=== PATIENT | male | born 1975 | race Caucasian/White ===

== ENCOUNTER 2016-11-12 02:08 | Inpatient (IN) | payer BC ==
[~2016-11-12] VITALS: Ht 185.4 cm; Wt 118.9 kg
[2016-11-12] VITALS (8 sets, daily range): BP systolic 107–150; BP diastolic 57–95
[~2016-11-12 02:08] MED LIST: ALBUTEROL0.09 MG/A2 INH; BACTRIM DS 8001 TA1 PO; BIAXIN500 MG PO; BP MED PO; CATAFLAM50 MG PO; CATAPRES0.1 MG PO; CLARITIN10 MG PO; HYDROCODONE BIT1 T11 PO; LISINOPRIL HCTZ1 TA1 PO; MEDROL DOSEPAK4 MG PO; NYSTATIN AND TR1 CRE T; SIMVASTATIN PO; SIMVASTATIN40 MG PO
[2016-11-12 02:34] LABS: BASO # 0.1 10*3/uL (0.0-0.1); BASO % 0.8 % (0.0-1.0); EOS # 0.2 10*3/uL (0.0-0.4); EOS % 3.5 % (1.0-4.0); HEMATOCRIT 41.2 % (42.0-52.0); HEMOGLOBIN 14.5 g/dl (14.0-18.0); LYMPH # 3.3 10*3/uL (1.3-4.4); MEAN CELL VOLUME 86.9 fl (80.0-94.0); MEAN CORPUSCULAR HGB 30.6 pg (27.0-31.0); MEAN CORPUSCULAR HGB CONC 35.2 g/dl (33.0-37.0); MEAN PLATELET VOLUME 10.3 fl (9.6-12.3); MONO # 0.5 10*3/uL (0.1-1.0); MONO % 8.2 % (3.0-9.0); NEUT # 2.4 10*3/uL (2.3-7.9); NEUT % 37.3 % (47.0-73.0); PLATELET COUNT AUTOMATED 214 10*3/uL (130-400); RED BLOOD COUNT 4.74 10*6/uL (4.50-5.90); RED CELL DISTRI WIDTH 12.4 % (0-14.5); WHITE BLOOD COUNT 6.5 10*3/uL (4.8-10.8)
[2016-11-12 02:50] LABS: ALBUMIN 3.7 gm/dl (3.1-4.5); ALKALINE PHOSPHATASE 88 U/L (45-117); BILIRUBIN, DIRECT < 0.1 mg/dL (0.0-0.2); BILIRUBIN, TOTAL 0.3 mg/dl (0.2-1.0); BUN 10 mg/dl (7-24); CARBON DIOXIDE 24 mmol/L (21-32); CHLORIDE 104 mmol/L (98-107); EST GLOM FILT AFRICAN AMERICAN > 60 ml/min; GLUCOSE 145 mg/dL (65-99); MAGNESIUM 2.1 mg/dL (1.5-2.1); POTASSIUM 3.6 mmol/L (3.5-5.1); SGOT/AST 106 IU/L (3-35); SGPT/ALT 124 U/L (12-78); SODIUM 142 mmol/L (136-145); TOTAL PROTEIN 7.7 gm/dL (6.4-8.2)
[2016-11-12 02:54] LABS: TROPONIN I < 0.015 ng/ml (<0.045)
[2016-11-12 08:03] LABS: PROTHROMBIN TIME 10.6 SECONDS (9.0-12.4)
[2016-11-12] MEDS ORDERED: PRILOSEC20 M1 PO (08:13)
[2016-11-12 08:14] LABS: CHOLESTEROL 257 mg/dL (<200); FREE T4 0.77 ng/dl (0.76-1.46); HDL CHOLESTEROL 36 mg/dl (40-60); MAGNESIUM 2.3 mg/dL (1.5-2.1); PHOSPHOROUS 3.4 mg/dL (2.5-4.9); TRIGLYCERIDES 536 mg/dl (<150)
[2016-11-12] MEDS ORDERED: CLARITIN10 MG PO (08:14)
[2016-11-12 08:15] LABS: TROPONIN I < 0.015 ng/ml (<0.045)
[2016-11-12 09:50] LABS: VITAMIN D, 25-HYDROXY 18.3 ng/mL (30-100)
[2016-11-12 09:51] LABS: FOLIC ACID 21.62 ng/mL (>5.38)
[2016-11-12] MEDS ORDERED: LOPID600 M1 PO (11:25)
[2016-11-12] MEDS ORDERED: METFORMIN500 MG PO (11:25)
[2016-11-12] MEDS ORDERED: PREDNISONE10 MG PO (11:25)
[2016-11-12] MEDS ORDERED: LEVAQUIN500 M2 PO (11:25)
[2016-11-12] MEDS ORDERED: VENTOLIN H0.09 MG/AC INH (11:29)
== END 2016-11-12 14:20 | disposition home or self-care (01) | DRG 871 ==
LOC: ED 02:08 → EDHOLD 06:52 → 4E 07:51
PROVIDERS: Emergency Medicine; Internal Medicine Hospice and Palliative Medicine
DX: A41.9 Sepsis, unspecified organism (principal); J18.9 Pneumonia, unspecified organism; J45.901 Unspecified asthma with (acute) exacerbation; E83.41 Hypermagnesemia; E11.65 Type 2 diabetes mellitus with hyperglycemia; I10 Essential (primary) hypertension; E78.1 Pure hyperglyceridemia; E78.5 Hyperlipidemia, unspecified; F10.120 Alcohol abuse with intoxication, uncomplicated; R06.00 Dyspnea, unspecified; R74.0 Nonspecific elevation of levels of transaminase and lactic acid dehydrogenase [LDH]; Z83.6 Family history of other diseases of the respiratory system; Z84.89 Family history of other specified conditions; Z79.899 Other long term (current) drug therapy

== ENCOUNTER 2016-12-29 22:37 | Emergency (ER) | payer BC ==
[~2016-12-29] VITALS: Ht 185.4 cm; Wt 117.9 kg
[~2016-12-29 22:37] MED LIST changes: +LEVAQUIN500 M2 PO; +LOPID600 M1 PO; +METFORMIN500 MG PO; +PREDNISONE10 MG PO; +PRILOSEC20 M1 PO; +VENTOLIN H0.09 MG/AC INH
[2016-12-29 23:47] LABS: BILIRUBIN NEGATIVE (NEGATIVE); BLOOD TRACE-INTACT (NEGATIVE); CLARITY CLEAR (CLEAR); COLOR YELLOW (YELLOW); GLUCOSE NEGATIVE (NEGATIVE); KETONE NEGATIVE (NEGATIVE); LEUKO ESTERASE NEGATIVE (NEGATIVE); NITRITE NEGATIVE (NEGATIVE); PH 5.5 (5.0-9.0); PROTEIN TRACE (NEGATIVE); SPECIFIC GRAVITY <= 1.005 (1.005-1.030); UROBILINOGEN 0.2 E.U./dl (0.2-1.0)
[2016-12-29 23:57] LABS: URINE AMPHETAMINES < 1000 (1000ng/ml); URINE BARBITURATES < 200 (200ng/ml); URINE COCAINE > 300 (300ng/ml)
[2016-12-30 00:05] LABS: RBC 0-2 rbc/hpf (0-2); URINE REFLEX COMMENT NO (NO)
[2016-12-30 00:55] LABS: BASO # 0.1 10*3/uL (0.0-0.1); BASO % 0.7 % (0.0-1.0); EOS # 0.2 10*3/uL (0.0-0.4); EOS % 2.2 % (1.0-4.0); HEMATOCRIT 46.5 % (42.0-52.0); HEMOGLOBIN 16.2 g/dl (14.0-18.0); LYMPH # 4.3 10*3/uL (1.3-4.4); LYMPH % 53.1 % (27.0-41.0); MEAN CELL VOLUME 88.7 fl (80.0-94.0); MEAN CORPUSCULAR HGB 30.9 pg (27.0-31.0); MEAN CORPUSCULAR HGB CONC 34.8 g/dl (33.0-37.0); MEAN PLATELET VOLUME 10.2 fl (9.6-12.3); MONO # 0.6 10*3/uL (0.1-1.0); MONO % 7.7 % (3.0-9.0); NEUT # 2.9 10*3/uL (2.3-7.9); NEUT % 36.1 % (47.0-73.0); PLATELET COUNT AUTOMATED 217 10*3/uL (130-400); RED BLOOD COUNT 5.24 10*6/uL (4.50-5.90); RED CELL DISTRI WIDTH 12.9 % (0-14.5); WHITE BLOOD COUNT 8.1 10*3/uL (4.8-10.8)
[2016-12-30 01:09] LABS: ALBUMIN 3.9 gm/dl (3.1-4.5); ALKALINE PHOSPHATASE 95 U/L (45-117); BILIRUBIN, TOTAL 0.2 mg/dl (0.2-1.0); BUN 8 mg/dl (7-24); CARBON DIOXIDE 28 mmol/L (21-32); CHLORIDE 106 mmol/L (98-107); EST GLOM FILT AFRICAN AMERICAN > 60 ml/min; GLUCOSE 161 mg/dL (65-99); POTASSIUM 3.9 mmol/L (3.5-5.1); SGOT/AST 45 IU/L (3-35); SGPT/ALT 77 U/L (12-78); SODIUM 141 mmol/L (136-145); TOTAL PROTEIN 7.6 gm/dL (6.4-8.2)
== END 2016-12-30 09:48 | disposition home or self-care (01) ==
LOC: ED 22:37
PROVIDERS: Emergency Medicine
DX: F10.10 Alcohol abuse, uncomplicated (principal); J45.909 Unspecified asthma, uncomplicated; I10 Essential (primary) hypertension; E11.9 Type 2 diabetes mellitus without complications; E78.5 Hyperlipidemia, unspecified; F17.200 Nicotine dependence, unspecified, uncomplicated

== ENCOUNTER 2018-01-27 21:23 | Emergency (ER) | payer BC ==
[~2018-01-27] VITALS: Wt 99.8 kg
[2018-01-27] MEDS ORDERED: LISINOPRIL20 MG PO (21:34)
[2018-01-27] MEDS ORDERED: AMLODIPINE BESY10 MG PO (21:35)
[2018-01-27] MEDS ORDERED: HYDROCHLOROTHIA50 M1 PO (21:36)
== END 2018-01-28 00:15 | disposition home or self-care (01) ==
LOC: ED 21:23
DX: S56.912A Strain of unspecified muscles, fascia and tendons at forearm level, left arm, initial encounter (principal); F17.200 Nicotine dependence, unspecified, uncomplicated; Z79.899 Other long term (current) drug therapy; X50.1XXA Overexertion from prolonged static or awkward postures, initial encounter; Y93.89 Activity, other specified; Y92.099 Unspecified place in other non-institutional residence as the place of occurrence of the external cause; Y99.9 Unspecified external cause status

== ENCOUNTER 2018-04-24 03:37 | Inpatient (IN) | payer BC ==
[~2018-04-24] VITALS: Ht 187.9 cm; Wt 103.0 kg
--- NOTE | ~2018-04-24 | EKG ---
[place], [place] ELECTROCARDIOGRAM REPORT NAME: BERNIE ANDREWS JR UNIT #: [id number] ROOM: [place] [address] DOCTOR: EPIPHANY DRAFT REPORT BIRTHDATE: [birth year] [facility] Test Date: 2018-04-24 Test Time: 07:00:24 Pat Name: BERNIE ANDREWS Department: Room: [place] [address] Gender: M Help Desk Intern: Yeimi Looney : 1975 Requested By: YUE LARSON Order Number: [id number] Reading MD: Juan Ramon Cruz MD Measurements Intervals [place] Rate: 77 P: 6 TN: 127 QRS: 80 QRSD: 112 T: 34 QT: 391 QTc: 443 Interpretive Statements Sinus rhythm Borderline intraventricular conduction delay ST elev, probable normal early repol pattern Electronically Signed On 04-24-2018 16:22:01 PDT by Juan Ramon Cruz MD CM:EKGRPT:ELECTROCARDIOGRAM REPORT [id number] YUE LARSON MD EPIPHANY DRAFT REPORT YUE LARSON MD
[2018-04-24 03:37] VITALS: BP 146/107
[~2018-04-24 03:37] MED LIST changes: +AMLODIPINE BESY10 MG PO; +HYDROCHLOROTHIA50 M1 PO; +LISINOPRIL20 MG PO
[2018-04-24 04:31] LABS: BASO # 0.1 10*3/uL (0.0-0.1); EOS # 0.2 10*3/uL (0.0-0.4); EOS % 3.2 % (1.0-4.0); HEMATOCRIT 46.3 % (42.0-52.0); HEMOGLOBIN 16.1 g/dl (14.0-18.0); LYMPH # 3.4 10*3/uL (1.3-4.4); LYMPH % 47.1 % (27.0-41.0); MEAN CELL VOLUME 90.8 fl (80.0-94.0); MEAN CORPUSCULAR HGB 31.6 pg (27.0-31.0); MEAN CORPUSCULAR HGB CONC 34.8 g/dl (33.0-37.0); MEAN PLATELET VOLUME 9.6 fl (9.6-12.3); MONO # 0.5 10*3/uL (0.1-1.0); MONO % 7.6 % (3.0-9.0); NEUT # 2.9 10*3/uL (2.3-7.9); PLATELET COUNT AUTOMATED 206 10*3/uL (130-400); RED CELL DISTRI WIDTH 13.4 % (0-14.5); WHITE BLOOD COUNT 7.1 10*3/uL (4.8-10.8)
[2018-04-24 04:47] LABS: ALBUMIN 3.8 gm/dl (3.1-4.5); ALKALINE PHOSPHATASE 70 U/L (45-117); BUN 6 mg/dl (7-24); CHLORIDE 103 mmol/L (98-107); CREATININE 0.62 mg/dL (0.70-1.30); LIPASE 185 U/L (73-393); POTASSIUM 3.4 mmol/L (3.5-5.1); SGOT/AST 42 IU/L (3-35); SGPT/ALT 60 U/L (12-78); SODIUM 139 mmol/L (136-145); TOTAL PROTEIN 7.8 gm/dL (6.4-8.2)
[2018-04-24 04:48] LABS: TROPONIN I < 0.015 ng/ml (<0.045)
[2018-04-24 05:08] LABS: URINE AMPHETAMINES < 1000 (1000ng/ml); URINE BARBITURATES < 200 (200ng/ml); URINE BENZODIAZEPINES < 200 (200ng/ml); URINE CANNABINOIDS (THC) < 50 (50ng/ml); URINE COCAINE < 300 (300ng/ml); URINE METHADONE < 300 (300ng/ml); URINE OPIATES < 300 (300ng/ml)
[2018-04-24 05:09] LABS: URINE PHENCYCLIDINE < 25 (25ng/ml)
[2018-04-24 06:36] VITALS: BP 132/72
[2018-04-24 06:42] VITALS: BP 101/60
[2018-04-24 07:36] VITALS: BP 120/90
[2018-04-24 07:50] VITALS: BP 126/88
[2018-04-24] MEDS ORDERED: PRILOSEC20 M1 PO (09:08)
[2018-04-24] MEDS ORDERED: GLUCOPHAGE1000 MG PO (09:08)
[2018-04-24] MEDS ORDERED: ZOCOR20 MG PO (09:08)
[2018-04-24] MEDS ORDERED: PROVENTIL HFA6.7 GM INH (09:11)
[2018-04-24 09:45] LABS: CHOLESTEROL 289 mg/dL (<200); FREE T4 0.78 ng/dl (0.76-1.46); HDL CHOLESTEROL 55 mg/dl (40-60); PHOSPHOROUS 3.8 mg/dL (2.5-4.9); TRIGLYCERIDES 417 mg/dl (<150)
[2018-04-24 09:55] LABS: TROPONIN I < 0.015 ng/ml (<0.045)
[2018-04-24 11:39] LABS: VITAMIN D, 25-HYDROXY 28.3 ng/mL (30-100)
[2018-04-24 12:00] VITALS: BP 126/78
== END 2018-04-24 13:49 | disposition left against medical advice (07) | DRG 641 ==
LOC: ED 03:37 → EDHOLD 06:27 → ICCU 06:27
PROVIDERS: Emergency Medicine Emergency Medical Services; Internal Medicine Nephrology
DX: E87.6 Hypokalemia (principal); E11.65 Type 2 diabetes mellitus with hyperglycemia; J45.909 Unspecified asthma, uncomplicated; I10 Essential (primary) hypertension; E78.5 Hyperlipidemia, unspecified; W18.39XA Other fall on same level, initial encounter; E83.41 Hypermagnesemia; E66.3 Overweight; F10.120 Alcohol abuse with intoxication, uncomplicated; Z79.899 Other long term (current) drug therapy; Z87.01 Personal history of pneumonia (recurrent); Z83.6 Family history of other diseases of the respiratory system; Z84.89 Family history of other specified conditions; Y93.89 Activity, other specified; Y92.89 Other specified places as the place of occurrence of the external cause; Y99.8 Other external cause status; Z72.0 Tobacco use; Z78.9 Other specified health status; Z68.29 Body mass index [BMI] 29.0-29.9, adult

== ENCOUNTER 2018-05-11 00:21 | Emergency (ER) | payer BC ==
[~2018-05-11] VITALS: Ht 185.4 cm; Wt 108.9 kg
[~2018-05-11 00:21] MED LIST changes: +GLUCOPHAGE1000 MG PO; +PROVENTIL HFA6.7 GM INH; +ZOCOR20 MG PO
[2018-05-11 01:45] LABS: BILIRUBIN NEGATIVE (NEGATIVE); BLOOD 1+ (NEGATIVE); CLARITY CLEAR (CLEAR); COLOR YELLOW (YELLOW); GLUCOSE NEGATIVE (NEGATIVE); KETONE NEGATIVE (NEGATIVE); LEUKO ESTERASE NEGATIVE (NEGATIVE); NITRITE NEGATIVE (NEGATIVE); SPECIFIC GRAVITY <= 1.005 (1.005-1.030); UROBILINOGEN 0.2 E.U./dl (0.2-1.0)
[2018-05-11 01:54] LABS: URINE AMPHETAMINES < 1000 (1000ng/ml); URINE BARBITURATES < 200 (200ng/ml); URINE BENZODIAZEPINES < 200 (200ng/ml); URINE CANNABINOIDS (THC) < 50 (50ng/ml); URINE COCAINE < 300 (300ng/ml); URINE METHADONE < 300 (300ng/ml); URINE OPIATES < 300 (300ng/ml)
[2018-05-11 01:55] LABS: RBC 0-2 rbc/hpf (0-2)
[2018-05-11 01:56] LABS: URINE PHENCYCLIDINE < 25 (25ng/ml)
== END 2018-05-11 10:00 | disposition home or self-care (01) ==
LOC: ED 00:21
PROVIDERS: Student in an Organized Health Care Education/Training Program
DX: S01.81XA Laceration without foreign body of other part of head, initial encounter (principal); J45.909 Unspecified asthma, uncomplicated; I10 Essential (primary) hypertension; E11.65 Type 2 diabetes mellitus with hyperglycemia; E78.5 Hyperlipidemia, unspecified; E83.41 Hypermagnesemia; F10.929 Alcohol use, unspecified with intoxication, unspecified; Z79.84 Long term (current) use of oral hypoglycemic drugs; Z79.899 Other long term (current) drug therapy; Z68.25 Body mass index [BMI] 25.0-25.9, adult; Y08.89XA Assault by other specified means, initial encounter; Y93.89 Activity, other specified; Y92.89 Other specified places as the place of occurrence of the external cause; Y99.8 Other external cause status

== ENCOUNTER 2018-06-02 03:25 | Emergency (ER) | payer BC ==
[~2018-06-02] VITALS: Ht 30.5 cm
[2018-06-02] MEDS ORDERED: IBU800 MG PO (03:36)
== END 2018-06-02 03:54 | disposition home or self-care (01) ==
LOC: ED 03:25
DX: S01.81XD Laceration without foreign body of other part of head, subsequent encounter (principal); F17.200 Nicotine dependence, unspecified, uncomplicated; F10.10 Alcohol abuse, uncomplicated; J45.909 Unspecified asthma, uncomplicated; I10 Essential (primary) hypertension; E78.5 Hyperlipidemia, unspecified; E11.65 Type 2 diabetes mellitus with hyperglycemia; Z68.25 Body mass index [BMI] 25.0-25.9, adult; Z79.899 Other long term (current) drug therapy; X58.XXXD Exposure to other specified factors, subsequent encounter

== ENCOUNTER 2018-08-17 | Inpatient (IN) | payer BC ==
[~2018-08-17] MED LIST changes: +IBU800 MG PO
--- NOTE | ~2018-08-17 | EKG ---
[place], [place] ELECTROCARDIOGRAM REPORT NAME: BERNIE ANDREWS JR UNIT #: [id number] ROOM: 405 DOCTOR: MONE DRAFT REPORT BIRTHDATE: [birth year] [facility] Test Date: 2018-08-18 Test Time: 00:32:14 Pat Name: BERNIE ANDREWS Department: Room: 405 Gender: M Etcher Electrolytic: : 1975 Requested By: CANDICE LAZCANO Order Number: [id number] Reading MD: Mira Robles MD Measurements Intervals [place] Rate: 88 P: 76 [place]: 139 QRS: 92 QRSD: 98 T: 11 QT: 353 QTc: 427 Interpretive Statements Sinus rhythm Borderline right axis deviation Compared to ECG 04/24/2018 07:00:24 Electronically Signed On 08-20-2018 12:05:30 PST by Mira Robles MD CM:EKGRPT:ELECTROCARDIOGRAM REPORT [id number] 1205 CANDICE SHORE DRAFT REPORT CANDICE LAZCANO M.D.
--- NOTE | ~2018-08-17 | EKG ---
[place], [place] ELECTROCARDIOGRAM REPORT NAME: BERNIE ANDREWS JR UNIT #: [id number] ROOM: 405 DOCTOR: MONE DRAFT REPORT BIRTHDATE: [birth year] [facility] Test Date: 2018-08-17 Test Time: 18:37:14 Pat Name: BERNIE ANDREWS Department: Room: 405 Gender: M Capacity Planner: REJI : 1975 Requested By: CANDICE LAZCANO Order Number: [id number] Reading MD: Mira Robles MD Measurements Intervals [place] Rate: 87 P: 16 MD: 143 QRS: 81 QRSD: 104 T: 37 QT: 372 QTc: 448 Interpretive Statements Sinus rhythm Compared to ECG 04/24/2018 07:00:24 Electronically Signed On 08-20-2018 12:05:18 PST by Mira Robles MD CM:EKGRPT:ELECTROCARDIOGRAM REPORT [id number] 1205 CANDICE SHORE DRAFT REPORT CANDICE LAZCANO M.D.
--- NOTE | ~2018-08-17 | CON ---
[place], [place] REPORT OF CONSULTATION NAME: BERNIE ANDREWS JR UNIT #: [id number] ROOM: 405 DOCTOR: ALIREZA ATKINSONNASH BIRTHDATE: [birth year] DOS: 08/18/2018 CARDIOLOGY CONSULTATION REASON FOR VISIT: Chest pain. HISTORY OF PRESENT ILLNESS: The patient is a 42-year-old gentleman with history of diabetes, tobacco abuse and alcohol abuse, presented to the Emergency Room for chest pain and anxiety. He complained of intermittent chest pains in the mid substernal area at rest, occasional radiation to left arm and lasts for only few seconds. No associated symptoms such as nausea, diaphoresis or dizziness. The pain relieves by itself. This is a recurrent pain, but earlier in the morning, the pain lasted about an hour, which exacerbated with some diaphoresis and shortness of breath. He denies any palpitation or dizziness, no syncope, no orthopnea, no fever and chills. No nausea, vomiting or diarrhea. No bladder or bowel symptoms, no headache, no musculoskeletal symptoms, no neurologic symptoms. REVIEW OF SYSTEMS: Review of the 10 systems negative except as mentioned above. PAST MEDICAL HISTORY: 1. Hypertension. 2. Diabetes. 3. Dyslipidemia. 4. Overweight. 5. Asthma. PAST SURGICAL HISTORY: No previous cardiac surgical history. SOCIAL HISTORY: The patient does smoke, also drinks alcohol and occasionally uses cocaine. FAMILY HISTORY: Father has COPD. Mother has aneurysm. ALLERGIES: No known drug allergies. HOME MEDICATIONS: Reviewed. The pertinent cardiac medications include lisinopril 20 mg, Norvasc 10 mg and Zocor 20 mg. PHYSICAL EXAMINATION: VITAL SIGNS: Blood pressure 150/90, pulse 79, respiratory rate 20. Weight 99.8 kilos, BMI 29.1. GENERAL: Alert and comfortable, in no acute distress. HEAD AND NECK: Pupils are round and equal. Tongue was moist and pharynx was clear. NECK: Supple, no distended neck veins, no carotid bruit. CHEST: The patient with mild tenderness in the upper chest area. ABDOMEN: Benign, nontender. Bowel sounds normal. EXTREMITIES: Showed no edema. Distal pulses palpable. SKIN: Warm and dry. No cyanosis, no clubbing. [place], [place] REPORT OF CONSULTATION NAME: BERNIE ANDREWS JR UNIT #: [id number] ROOM: 405 DOCTOR: ALIREZA ATKINSON,NASH BIRTHDATE: [birth year] RECTAL: Deferred. GENITOURINARY: Deferred. NEUROLOGIC: The patient is alert and oriented. No focal neurologic deficit. MUSCULOSKELETAL: No joint tenderness or swelling. REVIEW OF THE DIAGNOSTIC TESTS: EKG rhythm strips and labs reviewed. EKG showed sinus rhythm with nondiagnostic anterior ST-T changes. His labs and imaging studies reviewed. IMPRESSION: 1. Chest pain, atypical, myocardial infarction ruled out. 2. Alcohol abuse. 3. Hypertension. 4. Diabetes type 2. 5. Anxiety. 6. Asthma. 7. Dyslipidemia. 8. Overweight. RECOMMENDATIONS: 1. Exercise treadmill stress test due to coronary artery disease risk factors. 2. Monitor his blood pressures and adjust the medications as needed. 3. Risk factor modification to quit smoking and drinking and using drugs was discussed. 4. There is no family at bedside at the time of my examination. 5. Further recommendation based on his symptoms and his stress test. NASH LAY MD CM:CONSTR:REPORT OF CONSULTATION 2253 08/19/18 1112 interface
--- NOTE | ~2018-08-17 | PR ---
[place], [place] PROGRESS NOTE NAME: BERNIE ANDREWS JR [facility] #: [id number] UNIT #: [id number] ROOM: 405 DOCTOR: JD MORILLO MD BIRTHDATE: [birth year] DOS: 08/19/2018 CARDIOLOGY PROGRESS NOTE SUBJECTIVE: The patient was seen today, 08/19/2018, for followup of chest discomfort. He presented to the hospital on 08/17/2018 with intermittent chest pains in the mid substernal area at rest with occasional radiation to his left arm. On the day of admission, the pain lasted about an hour and was associated with diaphoresis and some dyspnea. He therefore came to the hospital. Since he has been here, his symptoms have subsided and he believes they may be related to gas. However, since he does have risk factors of diabetes, hyperlipidemia and cigarette abuse, it was felt that further evaluation with stress testing was appropriate. Since he was hospitalized, his troponin levels have been unremarkable. His blood alcohol level on admission was 264. PHYSICAL EXAMINATION: VITAL SIGNS: Today his pulse is 75 and regular, blood pressure is 120/80. He was afebrile. He weighed 99.9 kg and had a body mass index 29.1. HEENT: Normocephalic and atraumatic. Extraocular muscles are intact. Sclerae are clear. Pupils equal, round and react to light. The oral mucosa is moist. Tongue is midline. NECK: Supple. He has no jugular distention. Carotids are full. He has no bruits. He has no neck or supraclavicular masses and no thyromegaly. LUNGS: Respirations were unlabored. He did have bibasilar wheezes, but no rales. He had no presacral edema or chest wall tenderness. HEART: Had a regular rhythm with a soft S4 gallop, but no S3. ABDOMEN: Soft and normally active. EXTREMITIES: Showed no edema. DIAGNOSTIC DATA: Resting electrocardiogram today is normal. IMPRESSION: 1. Atypical chest discomfort. 2. Diabetes mellitus. 3. Cigarette abuse. PLAN: We will proceed with his exercise stress test today. If that looks good, then no further cardiac workup would be indicated at this time and continued risk factor modification would be all that is indicated. We will make further recommendations after the stress test and I thank the hospitalist service for asking our advice regarding his care. [place], [place] PROGRESS NOTE NAME: JULIANA CROFTBERNIE Diana UNIT #: [id number] ROOM: 405 DOCTOR: JD MORILLO MD BIRTHDATE: [birth year] JD MORILLO MD CM:PNTRANS 1144 JD MORILLO MD 08/19/18 1727 interface
--- NOTE | ~2018-08-17 | EKG ---
[place], [place] ELECTROCARDIOGRAM REPORT NAME: BERNIE ANDREWS JR UNIT #: [id number] ROOM: 405 DOCTOR: MONE DRAFT REPORT BIRTHDATE: [birth year] [facility] Test Date: 2018-08-17 Test Time: 22:05:54 Pat Name: BERNIE ANDREWS Department: Room: 405 Gender: M Pavilion Cutter: : 1975 Requested By: CANDICE LAZCANO Order Number: [id number] Reading MD: Mira Robles MD Measurements Intervals [place] Rate: 79 P: 19 DE: 142 QRS: 72 QRSD: 109 T: 32 QT: 390 QTc: 448 Interpretive Statements Sinus rhythm ST elev, probable normal early repol pattern Baseline wander in lead(s) V3,V4,V5,V6 Compared to ECG 04/24/2018 07:00:24 No significant changes Electronically Signed On 08-20-2018 12:05:23 PST by Mira Robles MD CM:EKGRPT:ELECTROCARDIOGRAM REPORT 1205 CANDICE SHORE DRAFT REPORT CANDICE LAZCANO M.D.
[2018-08-17 18:42] VITALS: BP 163/100
[2018-08-17 18:52] LABS: BASO # 0.1 10*3/uL (0.0-0.1); BASO % 0.5 % (0.0-1.0); EOS % 0.1 % (1.0-4.0); HEMATOCRIT 45.8 % (42.0-52.0); HEMOGLOBIN 15.7 g/dl (14.0-18.0); LYMPH # 1.4 10*3/uL (1.3-4.4); LYMPH % 14.3 % (27.0-41.0); MEAN CELL VOLUME 90.7 fl (80.0-94.0); MEAN CORPUSCULAR HGB 31.1 pg (27.0-31.0); MEAN CORPUSCULAR HGB CONC 34.3 g/dl (33.0-37.0); MEAN PLATELET VOLUME 9.6 fl (9.6-12.3); MONO # 0.7 10*3/uL (0.1-1.0); MONO % 7.4 % (3.0-9.0); NEUT # 7.7 10*3/uL (2.3-7.9); NEUT % 77.4 % (47.0-73.0); PLATELET COUNT AUTOMATED 215 10*3/uL (130-400); RED BLOOD COUNT 5.05 10*6/uL (4.50-5.90); RED CELL DISTRI WIDTH 12.7 % (0-14.5); WHITE BLOOD COUNT 9.9 10*3/uL (4.8-10.8)
[2018-08-17 19:02] LABS: INTERNATIONAL NORM RATIO 0.9 (2.0-3.5)
[2018-08-17 19:06] LABS: BILIRUBIN NEGATIVE (NEGATIVE); BLOOD NEGATIVE (NEGATIVE); CLARITY CLEAR (CLEAR); COLOR YELLOW (YELLOW); GLUCOSE 2+ (NEGATIVE); KETONE NEGATIVE (NEGATIVE); LEUKO ESTERASE NEGATIVE (NEGATIVE); NITRITE NEGATIVE (NEGATIVE); SPECIFIC GRAVITY <= 1.005 (1.005-1.030); UROBILINOGEN 0.2 E.U./dl (0.2-1.0)
[2018-08-17 19:10] LABS: ALKALINE PHOSPHATASE 75 U/L (45-117); BUN 7 mg/dl (7-24); CHLORIDE 98 mmol/L (98-107); CREATININE 0.81 mg/dL (0.70-1.30); POTASSIUM 3.5 mmol/L (3.5-5.1); SGOT/AST 84 IU/L (3-35); SGPT/ALT 98 U/L (12-78); SODIUM 136 mmol/L (136-145); TOTAL PROTEIN 7.8 gm/dL (6.4-8.2)
[2018-08-17 19:13] LABS: TROPONIN I < 0.015 ng/ml (<0.045)
[2018-08-17 19:14] LABS: URINE AMPHETAMINES < 1000 (1000ng/ml); URINE BARBITURATES < 200 (200ng/ml); URINE BENZODIAZEPINES < 200 (200ng/ml); URINE CANNABINOIDS (THC) < 50 (50ng/ml); URINE COCAINE < 300 (300ng/ml); URINE METHADONE < 300 (300ng/ml); URINE OPIATES < 300 (300ng/ml); URINE PHENCYCLIDINE < 25 (25ng/ml)
[2018-08-17 19:17] LABS: BACTERIA TRACE; EPITHELIAL CELLS 0-2; RBC 0-2 rbc/hpf (0-2); WBC 0-2 wbc/hpf (0-5)
[2018-08-17 19:54] VITALS: BP 150/95
--- NOTE | 2018-08-17 19:56 | NUR ---
PATIENT IN BED AWAKE, FAMILY AT BEDSIDE. AOX3. NO DISTRESS NOTED. RESP EASY AND NONLABORED. RN WILL CONT TO MONITOR.
[2018-08-17 20:06] VITALS: BP 137/91
[2018-08-17 20:23] VITALS: BP 146/86
--- NOTE | 2018-08-17 20:44 | NUR ---
CRITICAL LAB, [place] 3.2
--- NOTE | 2018-08-17 20:49 | NUR ---
PATIENT IN BED AWAKE, AOX3. CALM AND COOPERATIVE. RESP EASY AND NONLABORED. RN WILL CONT TO MONITOR
[2018-08-17 21:44] VITALS: BP 144/74
[2018-08-17 22:00] VITALS: BP 147/100
--- NOTE | 2018-08-17 22:00 | NUR ---
A 42, admitted to ICCU, under the services of ROSEMARY North DO with a diagnosis of CHEST PAIN, ETOH INTOX. Chief complaint is CHEST PAIN. Patient arrived via bed from ER. Monitor applied. Initial assessment completed. Vital signs taken and recorded. ROSEMARY NROTH DO notified of admission to the unit. Orders received. See assessment for past medical history, medications and allergies. Patient and/or family oriented to unit. [facility] visitation policy reviewed. Clothing/patient valuable form completed. LAUREN BOOGIE
--- NOTE | 2018-08-18 | NUR ---
PATIENT DENIES ANY CHEST PAIN AT THIS TIME, STATED THAT IT WAS MORE ANXIETY. HE IS HAVING SOME PROBLEMS WITH A RELATIONSHIP, AND IT HAS BEEN GOING ON FOR A COUPLE OF MONTHS. THAT IS ALSO WHEN HE STARTED DRINKING HEAVILY EVERYDAY. PATIENT DENIES ANY SYMPTOMS OF WITHDRAWL AT THIS TIME, DID STATE HE HAS HAD THEM BEFORE. PATIENT APPROPRIATE AT THIS TIME. WILL CONTINUE TO MONITOR.
[2018-08-18 04:00] VITALS: BP 125/86
[2018-08-18 05:59] LABS: BASO # 0.1 10*3/uL (0.0-0.1); BASO % 1.2 % (0.0-1.0); EOS # 0.2 10*3/uL (0.0-0.4); EOS % 3.3 % (1.0-4.0); HEMATOCRIT 43.7 % (42.0-52.0); HEMOGLOBIN 14.9 g/dl (14.0-18.0); LYMPH # 1.8 10*3/uL (1.3-4.4); MEAN CELL VOLUME 91.8 fl (80.0-94.0); MEAN CORPUSCULAR HGB 31.3 pg (27.0-31.0); MEAN CORPUSCULAR HGB CONC 34.1 g/dl (33.0-37.0); MEAN PLATELET VOLUME 10.1 fl (9.6-12.3); MONO # 0.6 10*3/uL (0.1-1.0); MONO % 12.1 % (3.0-9.0); NEUT # 2.5 10*3/uL (2.3-7.9); NEUT % 48.2 % (47.0-73.0); PLATELET COUNT AUTOMATED 184 10*3/uL (130-400); RED BLOOD COUNT 4.76 10*6/uL (4.50-5.90); RED CELL DISTRI WIDTH 12.7 % (0-14.5); WHITE BLOOD COUNT 5.2 10*3/uL (4.8-10.8)
[2018-08-18 06:10] LABS: ALBUMIN 3.1 gm/dl (3.1-4.5); ALKALINE PHOSPHATASE 66 U/L (45-117); BUN 5 mg/dl (7-24); CHLORIDE 106 mmol/L (98-107); CREATININE 0.63 mg/dL (0.70-1.30); PHOSPHOROUS 3.2 mg/dL (2.5-4.9); POTASSIUM 3.2 mmol/L (3.5-5.1); SGOT/AST 64 IU/L (3-35); SGPT/ALT 86 U/L (12-78); SODIUM 141 mmol/L (136-145); TOTAL PROTEIN 6.7 gm/dL (6.4-8.2)
[2018-08-18 08:00] VITALS: BP 147/99
--- NOTE | 2018-08-18 10:45 | NUR ---
REPORT RECEIVED FROM CASE MANAGEMENT MANAGER KEREN. PATIENT RESTING COMFORTABLY IN BED. PATIENT A&Ox3. PATIENT DENIES CP, SOB, N/D/V/C. PATIENT HAS NO COMPLAINTS OR NEEDS AT THIS TIME. WILL MONITOR.
--- NOTE | 2018-08-18 10:52 | NUR ---
PT TRANSFERED TO [facility] AT THIS TIME VIA WHEELCHAIR. REPORT GIVEN TO BLAIR CHEEK.
[2018-08-18 12:00] VITALS: BP 151/90; BP 154/97
[2018-08-18 16:00] VITALS: BP 138/84
--- NOTE | 2018-08-18 16:16 | NUR ---
PATIENT REQUESTING MEDICATION FOR HEARTBURN. PATIENT TAKES PRILOSEC AT HOME, ON HOME MED REQ BUT WAS HELD ON ADMISSION. DR ROBBINS CALLED AND MADE AWARE- AWAITING FOR NEW ORDERS.
--- NOTE | 2018-08-18 18:30 | NUR ---
Shift chart check completed.
[2018-08-18 20:00] VITALS: BP 139/96; BP 148/88
--- NOTE | 2018-08-18 20:25 | NUR ---
AWAKE/ALERT FOR SHIFT ASSESSMENT. RESPIRATIONS EASY/REG ON RA. NO VOICED COMPLAINTS FROM PATIENT AT THIS TIME. BED IN LOW POSITION, WHEELS LOCKED, CALL LIGHT IN REACH.
[2018-08-19] VITALS: BP 143/88
--- NOTE | 2018-08-19 03:02 | NUR ---
SLEEPING. NO S/S OF DISTRESS NOTED. CALL LIGHT IN REACH
[2018-08-19 08:00] VITALS: BP 120/80
--- NOTE | 2018-08-19 09:00 | NUR ---
Asbestos Pipe Supervisor in to talk to patient. Patient states lives at home with family. There are few steps in the home. Physician: jeanne sullivan Pharmacy[facility] health services: none Patient's level of ADLs: INDEPENDENT Patient has working utilities: all working DME: none Follow-up physician's appointment after d/c: will be made by hospitalist nurse director upon discharged Does patient want to access PORTAL?: no Discharge plan discussed with patient, patient lives at home, is independent in adls and ambulation, works, drives, patient states he will be going back home when able and denies any home needs. RERE CORTES
--- NOTE | 2018-08-19 11:52 | NUR ---
INFORMED SIGNED CONSENT OBTAINED FOR LEXISCAN STRESS TEST WITH DR MORILLO. RESTING EKG NSR HR 71 BP 140/92 IN SUPINE POSITION, STANDING HR 86 BP 132/90. PT COMPLETED 10:15 OF A AJIT PROTOCOL WITH PT COMPLETING 1:15 OF STAGE IV AT 4.2 MPH AND 16% GRADE. PT REACHED A PEAK HR OF 184 WHICH REPRESENTS 100% OF PREDICTED MAXIMUM AND A PEAK BP OF 174/90. NO ARRHYTHMIAS OR ST CHAGNES NOTED. LAST RECOVERY HR OF 129 BP 167/78. PT IN STABLE CONDITION, AWAITING NUCLEAR IMAGES.
[2018-08-19 16:00] VITALS: BP 126/75
--- NOTE | 2018-08-19 19:30 | NUR ---
ASSUMED CARE OF PT AT THIS TIME. PT IS AWAKE IN BED, A&OX3. DENIES ANY PAIN/GENERALIZED DISCOMFORT. WILL MONITOR. CALL LIGHT LEFT IN REACH.
[2018-08-19 20:00] VITALS: BP 128/80
--- NOTE | 2018-08-19 23:56 | NUR ---
SCHEDULED PO LIBRIUM ADMINISTERED PER ORDER. WILL MONITOR. CALL LIGHT LEFT IN REACH.
[2018-08-20] VITALS: BP 129/91
[2018-08-20 06:27] LABS: BASO # 0.1 10*3/uL (0.0-0.1); BASO % 0.9 % (0.0-1.0); EOS # 0.2 10*3/uL (0.0-0.4); EOS % 2.4 % (1.0-4.0); HEMATOCRIT 47.6 % (42.0-52.0); HEMOGLOBIN 15.8 g/dl (14.0-18.0); LYMPH # 2.3 10*3/uL (1.3-4.4); MEAN CELL VOLUME 92.6 fl (80.0-94.0); MEAN CORPUSCULAR HGB 30.7 pg (27.0-31.0); MEAN CORPUSCULAR HGB CONC 33.2 g/dl (33.0-37.0); MEAN PLATELET VOLUME 10.4 fl (9.6-12.3); MONO # 0.5 10*3/uL (0.1-1.0); MONO % 7.1 % (3.0-9.0); NEUT % 56.5 % (47.0-73.0); PLATELET COUNT AUTOMATED 183 10*3/uL (130-400); RED BLOOD COUNT 5.14 10*6/uL (4.50-5.90); RED CELL DISTRI WIDTH 12.7 % (0-14.5)
[2018-08-20 06:54] LABS: BUN 12 mg/dl (7-24); CHLORIDE 106 mmol/L (98-107); CREATININE 0.76 mg/dL (0.70-1.30); POTASSIUM 3.2 mmol/L (3.5-5.1); SODIUM 140 mmol/L (136-145)
[2018-08-20 08:00] VITALS: BP 138/82
[2018-08-20] MEDS ORDERED: ATARAX,VISTARIL50 MG PO (09:56)
[2018-08-20] MEDS ORDERED: GEMFIBROZIL600 MG PO (09:56)
--- NOTE | 2018-08-20 12:12 | NUR ---
Discharge instructions reviewed with patient/family. Patient receptive and verbalizes understanding. Follow-up care arranged. Written instructions given to patient/family WENT OVER DISCHARGE PACKET WITH PATIENT. PRINTED PRESCRIPTIONS PROVIDED TO PATIENT. PATIENT AWARE OF THE NEED TO FOLLOW UP WITH HIS PRIMARY CARE PROVIDER IN ONE WEEK. PATIENT DENIES ANY NEEDS OR CONCERNS AT THIS TIME. IV REMOVED, PATIETN TOLERATED WELL. HEART MONITOR REMOVED AND PLACED IN NURSES STATION. ALL BELONGINGS WITH PATIENT AT THIS TIME. . BASIM BARILLAS E
== END 2018-08-20 13:55 | disposition home or self-care (01) | DRG 392 ==
PROVIDERS: Emergency Medicine; Family Medicine; Student in an Organized Health Care Education/Training Program; ADMIT Internal Medicine
DX: K21.9 Gastro-esophageal reflux disease without esophagitis (principal); E87.2 Acidosis; F41.9 Anxiety disorder, unspecified; R74.0 Nonspecific elevation of levels of transaminase and lactic acid dehydrogenase [LDH]; J45.909 Unspecified asthma, uncomplicated; I10 Essential (primary) hypertension; E78.5 Hyperlipidemia, unspecified; E66.3 Overweight; E11.65 Type 2 diabetes mellitus with hyperglycemia; E78.01 Familial hypercholesterolemia; F10.929 Alcohol use, unspecified with intoxication, unspecified; Z71.6 Tobacco abuse counseling; F17.210 Nicotine dependence, cigarettes, uncomplicated; Z72.89 Other problems related to lifestyle; Z83.6 Family history of other diseases of the respiratory system; Z68.29 Body mass index [BMI] 29.0-29.9, adult; Z79.84 Long term (current) use of oral hypoglycemic drugs

== ENCOUNTER 2019-04-09 05:45 | Emergency (ER) | payer BC ==
[~2019-04-09] VITALS: Ht 185.4 cm; Wt 99.8 kg
[~2019-04-09 05:45] MED LIST changes: +ATARAX,VISTARIL50 MG PO; +GEMFIBROZIL600 MG PO
[2019-04-09 06:16] LABS: BASO % 0.3 % (0.0-1.0); EOS # 0.1 10*3/uL (0.0-0.4); EOS % 0.6 % (1.0-4.0); HEMATOCRIT 48.6 % (42.0-52.0); HEMOGLOBIN 16.3 g/dl (14.0-18.0); LYMPH # 1.4 10*3/uL (1.3-4.4); LYMPH % 11.1 % (27.0-41.0); MEAN CELL VOLUME 92.6 fl (80.0-94.0); MEAN CORPUSCULAR HGB CONC 33.5 g/dl (33.0-37.0); MEAN PLATELET VOLUME 10.3 fl (9.6-12.3); MONO # 0.6 10*3/uL (0.1-1.0); MONO % 4.9 % (3.0-9.0); NEUT # 10.5 10*3/uL (2.3-7.9); NEUT % 82.9 % (47.0-73.0); PLATELET COUNT AUTOMATED 166 10*3/uL (130-400); RED BLOOD COUNT 5.25 10*6/uL (4.50-5.90); RED CELL DISTRI WIDTH 13.1 % (0-14.5); WHITE BLOOD COUNT 12.7 10*3/uL (4.8-10.8)
[2019-04-09 06:31] LABS: ALBUMIN 3.8 gm/dl (3.1-4.5); ALKALINE PHOSPHATASE 90 U/L (45-117); BUN 10 mg/dl (7-24); CHLORIDE 104 mmol/L (98-107); CREATININE 1.01 mg/dL (0.70-1.30); SGOT/AST 58 IU/L (3-35); SGPT/ALT 39 U/L (12-78); SODIUM 137 mmol/L (136-145)
== END 2019-04-09 08:53 | disposition short-term general hospital (02) ==
LOC: ED 05:45
PROVIDERS: Emergency Medicine Emergency Medical Services
DX: J39.0 Retropharyngeal and parapharyngeal abscess (principal); J98.8 Other specified respiratory disorders; E78.5 Hyperlipidemia, unspecified; J45.909 Unspecified asthma, uncomplicated; E11.9 Type 2 diabetes mellitus without complications; I10 Essential (primary) hypertension; F17.200 Nicotine dependence, unspecified, uncomplicated

== ENCOUNTER 2019-07-09 21:49 | Emergency (ER) | payer BC ==
[~2019-07-09] VITALS: Ht 185.4 cm
[2019-07-09] MEDS ORDERED: AUGMENTIN 875875 MG PO (22:11)
[2019-07-09] MEDS ORDERED: CLARITIN10 MG PO (22:11)
== END 2019-07-09 22:18 | disposition home or self-care (01) ==
LOC: ED 21:49
DX: J32.9 Chronic sinusitis, unspecified (principal); J45.909 Unspecified asthma, uncomplicated; E11.9 Type 2 diabetes mellitus without complications; I10 Essential (primary) hypertension; E78.5 Hyperlipidemia, unspecified; F17.200 Nicotine dependence, unspecified, uncomplicated

== ENCOUNTER 2019-08-17 02:53 | Emergency (ER) | payer BC ==
[~2019-08-17] VITALS: Ht 185.4 cm; Wt 103.6 kg
[~2019-08-17 02:53] MED LIST changes: +AUGMENTIN 875875 MG PO
[2019-08-17] MEDS ORDERED: NORCO 5-325 TA1 EACH PO (04:17)
== END 2019-08-17 05:00 | disposition home or self-care (01) ==
LOC: ED 02:53
DX: S92.002A Unspecified fracture of left calcaneus, initial encounter for closed fracture (principal); S01.112A Laceration without foreign body of left eyelid and periocular area, initial encounter; S02.2XXA Fracture of nasal bones, initial encounter for closed fracture; S06.0X0A Concussion without loss of consciousness, initial encounter; J45.909 Unspecified asthma, uncomplicated; E11.9 Type 2 diabetes mellitus without complications; I10 Essential (primary) hypertension; E78.5 Hyperlipidemia, unspecified; F17.200 Nicotine dependence, unspecified, uncomplicated; Y04.2XXA Assault by strike against or bumped into by another person, initial encounter; Y93.89 Activity, other specified; Y92.89 Other specified places as the place of occurrence of the external cause; Y99.8 Other external cause status

== ENCOUNTER 2019-08-25 12:51 | Emergency (ER) | payer BC ==
[~2019-08-25] VITALS: Wt 97.5 kg
[~2019-08-25 12:51] MED LIST changes: +NORCO 5-325 TA1 EACH PO
== END 2019-08-25 14:21 | disposition left against medical advice (07) ==
LOC: ED 12:51
DX: S01.112D Laceration without foreign body of left eyelid and periocular area, subsequent encounter (principal); Z48.02 Encounter for removal of sutures; Z53.21 Procedure and treatment not carried out due to patient leaving prior to being seen by health care provider; X58.XXXD Exposure to other specified factors, subsequent encounter

== ENCOUNTER 2019-08-26 09:01 | Emergency (ER) | payer BC ==
[~2019-08-26] VITALS: Ht 185.4 cm; Wt 97.5 kg
== END 2019-08-26 09:22 | disposition home or self-care (01) ==
LOC: ED 09:01
DX: S01.112D Laceration without foreign body of left eyelid and periocular area, subsequent encounter (principal); I10 Essential (primary) hypertension; J45.909 Unspecified asthma, uncomplicated; Z87.891 Personal history of nicotine dependence; Y04.2XXD Assault by strike against or bumped into by another person, subsequent encounter

== ENCOUNTER 2019-11-07 02:35 | Emergency (ER) | payer BC ==
[~2019-11-07] VITALS: Ht 185.4 cm; Wt 104.3 kg
[2019-11-07] MEDS ORDERED: AUGMENTIN 875875 MG PO (03:55)
== END 2019-11-07 04:07 | disposition home or self-care (01) ==
LOC: ED 02:35
DX: J32.9 Chronic sinusitis, unspecified (principal); J45.909 Unspecified asthma, uncomplicated; E11.49 Type 2 diabetes mellitus with other diabetic neurological complication; I10 Essential (primary) hypertension; E78.5 Hyperlipidemia, unspecified; F17.200 Nicotine dependence, unspecified, uncomplicated

== ENCOUNTER 2020-02-21 22:28 | Emergency (ER) | payer BC ==
[~2020-02-21] VITALS: Ht 193 cm; Wt 113.4 kg
[2020-02-22] MEDS ORDERED: FLOVENT HFA10.6 GM INH (00:33)
[2020-02-22] MEDS ORDERED: SILVADENE20 GM T (00:33)
[2020-02-22] MEDS ORDERED: LISINOPRIL10 M1 PO (00:34)
[2020-02-22] MEDS ORDERED: MEDROL DOSEPAK4 MG PO (00:38)
== END 2020-02-22 01:08 | disposition home or self-care (01) ==
LOC: ED 22:28
DX: T21.22XA Burn of second degree of abdominal wall, initial encounter (principal); J44.1 Chronic obstructive pulmonary disease with (acute) exacerbation; I10 Essential (primary) hypertension; F32.9 Major depressive disorder, single episode, unspecified; E78.00 Pure hypercholesterolemia, unspecified; Z91.14 Patient's other noncompliance with medication regimen; X08.8XXA Exposure to other specified smoke, fire and flames, initial encounter; Y93.89 Activity, other specified; Y92.89 Other specified places as the place of occurrence of the external cause; Y99.8 Other external cause status

== ENCOUNTER 2020-03-04 10:32 | Emergency (ER) | payer BC ==
[~2020-03-04] VITALS: Ht 185.4 cm; Wt 113.4 kg
[~2020-03-04 10:32] MED LIST changes: +FLOVENT HFA10.6 GM INH; +LISINOPRIL10 M1 PO; +SILVADENE20 GM T
[2020-03-04 11:21] LABS: BASO # 0.1 10*3/uL (0.0-0.1); BASO % 0.8 % (0.0-1.0); EOS # 0.1 10*3/uL (0.0-0.4); EOS % 1.8 % (1.0-4.0); HEMATOCRIT 47.5 % (42.0-52.0); LYMPH # 2.5 10*3/uL (1.3-4.4); LYMPH % 32.8 % (27.0-41.0); MEAN CELL VOLUME 91.9 fl (80.0-94.0); MEAN CORPUSCULAR HGB 30.6 pg (27.0-31.0); MEAN CORPUSCULAR HGB CONC 33.3 g/dl (33.0-37.0); MONO # 0.7 10*3/uL (0.1-1.0); MONO % 8.7 % (3.0-9.0); NEUT # 4.3 10*3/uL (2.3-7.9); NEUT % 55.8 % (47.0-73.0); PLATELET COUNT AUTOMATED 252 10*3/uL (130-400); RED BLOOD COUNT 5.17 10*6/uL (4.50-5.90); RED CELL DISTRI WIDTH 12.9 % (0-14.5); WHITE BLOOD COUNT 7.7 10*3/uL (4.8-10.8)
[2020-03-04 11:35] LABS: ALBUMIN 3.7 gm/dl (3.1-4.5); ALKALINE PHOSPHATASE 106 U/L (45-117); BUN 9 mg/dl (7-24); CHLORIDE 104 mmol/L (98-107); CREATININE 0.75 mg/dL (0.70-1.30); POTASSIUM 3.9 mmol/L (3.5-5.1); SGOT/AST 63 IU/L (3-35); SGPT/ALT 87 U/L (12-78); SODIUM 137 mmol/L (136-145); TOTAL PROTEIN 7.8 gm/dL (6.4-8.2)
[2020-03-04] MEDS ORDERED: CEPHALEXIN500 M1 PO (11:58)
== END 2020-03-04 12:03 | disposition home or self-care (01) ==
LOC: ED 10:32
PROVIDERS: Physician Assistant
DX: T21.22XA Burn of second degree of abdominal wall, initial encounter (principal); Z79.899 Other long term (current) drug therapy; X08.8XXA Exposure to other specified smoke, fire and flames, initial encounter; Y93.89 Activity, other specified; Y92.89 Other specified places as the place of occurrence of the external cause; Y99.8 Other external cause status

== ENCOUNTER 2020-10-31 22:59 | Emergency (ER) | payer SELFPAY ==
[~2020-10-31] VITALS: Ht 185.4 cm; Wt 108.9 kg
[~2020-10-31 22:59] MED LIST changes: +CEPHALEXIN500 M1 PO
[2020-10-31 23:41] LABS: BASO # 0.1 10*3/uL (0.0-0.1); BASO % 0.5 % (0.0-1.0); EOS # 0.2 10*3/uL (0.0-0.4); EOS % 1.1 % (1.0-4.0); HEMATOCRIT 47.6 % (42.0-52.0); LYMPH # 2.6 10*3/uL (1.3-4.4); LYMPH % 19.4 % (27.0-41.0); MEAN CELL VOLUME 91.7 fl (80.0-94.0); MEAN CORPUSCULAR HGB 30.8 pg (27.0-31.0); MEAN CORPUSCULAR HGB CONC 33.6 g/dl (33.0-37.0); MEAN PLATELET VOLUME 9.9 fl (9.6-12.3); MONO % 7.2 % (3.0-9.0); NEUT # 9.7 10*3/uL (2.3-7.9); NEUT % 71.4 % (47.0-73.0); PLATELET COUNT AUTOMATED 234 10*3/uL (130-400); RED BLOOD COUNT 5.19 10*6/uL (4.50-5.90); RED CELL DISTRI WIDTH 13.1 % (0-14.5); WHITE BLOOD COUNT 13.6 10*3/uL (4.8-10.8)
[2020-10-31 23:54] LABS: INTERNATIONAL NORM RATIO 0.9 (2.0-3.5)
[2020-11-01] LABS: ALBUMIN 3.6 gm/dl (3.1-4.5); ALKALINE PHOSPHATASE 105 U/L (45-117); BUN 10 mg/dl (7-24); CHLORIDE 105 mmol/L (98-107); CREATININE 0.83 mg/dL (0.70-1.30); POTASSIUM 3.8 mmol/L (3.5-5.1); SGOT/AST 24 IU/L (3-35); SGPT/ALT 57 U/L (12-78); SODIUM 139 mmol/L (136-145); TOTAL PROTEIN 8.2 gm/dL (6.4-8.2)
[2020-11-01 00:01] LABS: TROPONIN I < 0.015 ng/ml (<0.045)
[2020-11-01 00:52] LABS: BILIRUBIN Negative (Negative); BLOOD Negative (Negative); CLARITY Clear (Clear); COLOR Yellow (Yellow); GLUCOSE Negative (Negative); KETONE Negative (Negative); LEUKO ESTERASE Negative (Negative); NITRITE Negative (Negative); PH 5.5 (4.5-8.0); SPECIFIC GRAVITY <= 1.005 (1.001-1.030); UROBILINOGEN 0.2 E.U./dl (0.0-1.0)
[2020-11-01 01:00] LABS: URINE AMPHETAMINES < 1000 (1000ng/ml); URINE BARBITURATES < 200 (200ng/ml); URINE BENZODIAZEPINES < 200 (200ng/ml); URINE CANNABINOIDS (THC) < 50 (50ng/ml); URINE COCAINE < 300 (300ng/ml); URINE METHADONE < 300 (300ng/ml); URINE OPIATES < 300 (300ng/ml)
[2020-11-01 01:08] LABS: URINE PHENCYCLIDINE < 25 (25ng/ml)
[2020-11-01 01:11] LABS: RBC 0-2 rbc/hpf (0-2); WBC 0-2 wbc/hpf (0-5)
[2020-11-01] MEDS ORDERED: PREDNISONE20 M1 PO (06:32)
== END 2020-11-01 06:38 | disposition home or self-care (01) ==
LOC: ED 22:59
PROVIDERS: Emergency Medicine
DX: F10.920 Alcohol use, unspecified with intoxication, uncomplicated (principal); J44.1 Chronic obstructive pulmonary disease with (acute) exacerbation; R07.89 Other chest pain; F32.9 Major depressive disorder, single episode, unspecified; F41.9 Anxiety disorder, unspecified; J45.909 Unspecified asthma, uncomplicated; E11.9 Type 2 diabetes mellitus without complications; E78.5 Hyperlipidemia, unspecified; I10 Essential (primary) hypertension; F17.200 Nicotine dependence, unspecified, uncomplicated; Z79.2 Long term (current) use of antibiotics; Z79.899 Other long term (current) drug therapy

== ENCOUNTER 2022-02-11 12:04 | Emergency (ER) | payer OTHER ==
[~2022-02-11 12:04] MED LIST changes: +PREDNISONE20 M1 PO
[2022-02-11] MEDS ORDERED: VENTOLIN 02.5 MG/3 M INH (12:24)
[2022-02-11] MEDS ORDERED: IBU600 M1 PO (12:25)
[2022-02-11] MEDS ORDERED: DEXTROAMPH SACC20 M1 PO (12:25)
[2022-02-11] MEDS ORDERED: VRAYLAR1.5 MG PO (12:25)
[2022-02-11] MEDS ORDERED: BUDESONIDE-FO10.2 G1 INH (12:25)
[2022-02-11] MEDS ORDERED: VENT7GM INH (12:26)
[2022-02-11] MEDS ORDERED: GOOD NEIGHBOR L10 MG PO (12:26)
[2022-02-11] MEDS ORDERED: OMEPRAZOLE40 MG PO (12:26)
[2022-02-11] MEDS ORDERED: ROSUVASTATIN CAL5 MG PO (12:27)
== END 2022-02-11 12:55 | disposition home or self-care (01) ==
LOC: ED 12:04
DX: H65.01 Acute serous otitis media, right ear (principal); Z79.899 Other long term (current) drug therapy

== ENCOUNTER 2023-03-26 15:11 | Emergency (ER) | payer OTHER ==
[~2023-03-26] VITALS: Ht 185.4 cm; Wt 99.8 kg
[~2023-03-26 15:11] MED LIST changes: +BUDESONIDE-FO10.2 G1 INH; +DEXTROAMPH SACC20 M1 PO; +GOOD NEIGHBOR L10 MG PO; +IBU600 M1 PO; +OMEPRAZOLE40 MG PO; +ROSUVASTATIN CAL5 MG PO; +VENT7GM INH; +VENTOLIN 02.5 MG/3 M INH; +VRAYLAR1.5 MG PO
== END 2023-03-26 15:50 | disposition left against medical advice (07) ==
LOC: ED 15:11
DX: J00 Acute nasopharyngitis [common cold] (principal); Z53.21 Procedure and treatment not carried out due to patient leaving prior to being seen by health care provider

== ENCOUNTER 2023-09-25 03:57 | Emergency (ER) | payer MEDICAID ==
[~2023-09-25] VITALS: Ht 182.8 cm; Wt 99.8 kg
[2023-09-25 04:16] LABS: BASO # 0.1 10*3/uL (0.0-0.1); BASO % 0.6 % (0.0-1.0); EOS # 0.4 10*3/uL (0.0-0.4); HEMATOCRIT 47.2 % (42.0-52.0); LYMPH # 4.1 10*3/uL (1.3-4.4); LYMPH % 44.3 % (27.0-41.0); MEAN CELL VOLUME 86.9 fl (80.0-94.0); MEAN CORPUSCULAR HGB 28.9 pg (27.0-31.0); MEAN CORPUSCULAR HGB CONC 33.3 g/dl (33.0-37.0); MEAN PLATELET VOLUME 9.3 fl (9.6-12.3); MONO # 0.5 10*3/uL (0.1-1.0); MONO % 5.3 % (3.0-9.0); NEUT # 4.3 10*3/uL (2.3-7.9); NEUT % 45.6 % (47.0-73.0); PLATELET COUNT AUTOMATED 285 10*3/uL (130-400); RED BLOOD COUNT 5.43 10*6/uL (4.50-5.90); RED CELL DISTRI WIDTH 12.8 % (0-14.5); WHITE BLOOD COUNT 9.3 10*3/uL (4.8-10.8)
[2023-09-25 04:38] LABS: ALKALINE PHOSPHATASE 85 U/L (46-116); CHLORIDE 102 mmol/L (98-107); POTASSIUM 3.4 mmol/L (3.4-5.1); SGPT/ALT 36 U/L (5-49); TOTAL PROTEIN 6.6 gm/dL (6.0-8.0)
[2023-09-25 04:50] LABS: BUN < 5 mg/dl (9-23)
== END 2023-09-25 06:34 | disposition home or self-care (01) ==
LOC: ED 03:57
PROVIDERS: Internal Medicine
DX: R07.89 Other chest pain (principal); E87.1 Hypo-osmolality and hyponatremia; F32.A Depression, unspecified; I10 Essential (primary) hypertension; J45.909 Unspecified asthma, uncomplicated; F17.200 Nicotine dependence, unspecified, uncomplicated; F10.10 Alcohol abuse, uncomplicated; F14.10 Cocaine abuse, uncomplicated

== ENCOUNTER 2023-10-19 21:44 | Emergency (ER) | payer MEDICAID ==
[~2023-10-19] VITALS: Ht 185.4 cm; Wt 103.9 kg
[2023-10-19] MEDS ORDERED: SIMVASTATIN20 MG PO (21:55)
[2023-10-19] MEDS ORDERED: Amoxicillin/Clavulanate Pota 875 MG TAB PO ONE (22:00)
[2023-10-19] MEDS ORDERED: AMOX-CLAV 875-1 EACH PO (22:06)
== END 2023-10-19 22:10 | disposition home or self-care (01) ==
LOC: ED 21:44
DX: H66.92 Otitis media, unspecified, left ear (principal); F10.10 Alcohol abuse, uncomplicated; F14.90 Cocaine use, unspecified, uncomplicated; F17.200 Nicotine dependence, unspecified, uncomplicated

== ENCOUNTER 2024-02-04 14:38 | Emergency (ER) | payer OTHER ==
[~2024-02-04] VITALS: Ht 185.4 cm; Wt 97.5 kg
[~2024-02-04 14:38] MED LIST changes: +AMOX-CLAV 875-1 EACH PO; +SIMVASTATIN20 MG PO
[2024-02-04] MEDS ORDERED: Dexamethasone Sodium Phospha 20 MG/5 ML VIAL IM ONE (16:55)
[2024-02-04] MEDS ORDERED: Ketorolac Tromethamine 60 MG/2 ML VIAL IM ONE (16:55)
[2024-02-04] MEDS ORDERED: MELOXICAM15 MG PO (16:56)
[2024-02-04] MEDS ORDERED: PREDNISONE50 MG PO (16:56)
== END 2024-02-04 17:11 | disposition home or self-care (01) ==
LOC: ED 14:38
DX: M77.11 Lateral epicondylitis, right elbow (principal); F32.A Depression, unspecified; I10 Essential (primary) hypertension; F10.10 Alcohol abuse, uncomplicated; F14.90 Cocaine use, unspecified, uncomplicated; F17.200 Nicotine dependence, unspecified, uncomplicated